=== PATIENT | male | born 1960 | race Caucasian/White ===

== ENCOUNTER 2021-08-04 07:59 | Outpatient (CLI) | payer BC ==
[2021-08-04 14:43] LABS: BASOPHILS % (AUTO) 0.2 %; EOSINOPHILS # (AUTO) 0.2 10^3/uL (0.0-0.7); EOSINOPHILS % (AUTO) 4.3 %; HCT - HEMATOCRIT 46.8 % (42.0-52.0); HGB - HEMOGLOBIN 15.3 g/dL (14.0-18.0); LYMPHOCYTES % (AUTO) 21.3 %; MEAN CORPUSCULAR HEMOGLOBIN 29.7 pg (27.0-31.0); MEAN CORPUSCULAR HGB CONC 32.7 g/dL (32.0-36.0); MEAN CORPUSCULAR VOLUME 90.9 fL (80.0-94.0); MEAN PLATELET VOLUME 9.7 fL (7.4-11.4); MONOCYTES # (AUTO) 0.4 10^3/uL (0.0-1.0); MONOCYTES % (AUTO) 9.3 %; NEUTROPHILS % (AUTO) 64.7 %; PLT - PLATELET COUNT 274 10^3/uL (130-450); RED BLOOD COUNT 5.15 10^6/uL (4.70-6.10); RED CELL DISTRIBUTION WIDTH 13.1 % (12.0-15.0); WHITE BLOOD COUNT 4.6 x10^3/uL (4.8-10.8)
[2021-08-04 15:16] LABS: ALBUMIN 4.5 g/dL (3.2-5.5); ALBUMIN/GLOBULIN RATIO 1.5 (1.0-2.2); ALKALINE PHOSPHATASE 101 IU/L (42-121); ALT ALANINE AMINOTRANSFERASE 31 IU/L (10-60); AST ASPARTATE AMINOTRANSFERASE 26 IU/L (10-42); BUN - BLOOD UREA NITROGEN 24 mg/dL (6-20); CALCIUM 9.5 mg/dL (8.5-10.3); CARBON DIOXIDE - CO2 25 mmol/L (21-32); CHLORIDE 104 mmol/L (101-111); CHOL/HDL RATIO 4.5 (<5.0); CHOLESTEROL 194 mg/dL; CREATININE 1.2 mg/dL (0.6-1.2); GFR - MDRD 61 (>89); GLUCOSE 103 mg/dL (70-100); HDL CHOLESTEROL 43 mg/dL; LDL CHOLESTEROL,CALCULATED 130 mg/dL; SODIUM 138 mmol/L (135-145); TOTAL PROTEIN 7.6 g/dL (6.7-8.2); TRIGLYCERIDES 107 mg/dL; VLDL CHOLESTEROL 21 mg/dL
== END 2021-08-04 08:00 | disposition home or self-care (01) ==
LOC: LAB.S 07:59
PROVIDERS: ATTEND Internal Medicine
DX: I10 Essential (primary) hypertension (principal); E78.5 Hyperlipidemia, unspecified; Z12.5 Encounter for screening for malignant neoplasm of prostate
CPT/HCPCS: 36415; 80053; 80061; 83721; 84153; 85025

== ENCOUNTER 2021-10-27 10:53 | Outpatient (CLI) | payer BC | END 2021-10-27 10:54 | disposition home or self-care (01) | LOC: LAB.S 10:53 | PROVIDERS: ATTEND Internal Medicine | DX: R97.20 Elevated prostate specific antigen [PSA] (principal) | CPT/HCPCS: 36415; 84153 ==

== ENCOUNTER 2022-10-25 08:17 | Outpatient (CLI) | payer BC ==
[2022-10-25 15:04] LABS: BASOPHILS % (AUTO) 0.2 %; EOSINOPHILS # (AUTO) 0.2 10^3/uL (0.0-0.7); EOSINOPHILS % (AUTO) 4.2 %; HCT - HEMATOCRIT 44.6 % (42.0-52.0); LYMPHOCYTES # (AUTO) 0.9 10^3/uL (1.5-3.5); LYMPHOCYTES % (AUTO) 17.7 %; MEAN CORPUSCULAR HEMOGLOBIN 29.6 pg (27.0-31.0); MEAN CORPUSCULAR HGB CONC 33.6 g/dL (32.0-36.0); MEAN CORPUSCULAR VOLUME 88.1 fL (80.0-94.0); MEAN PLATELET VOLUME 9.8 fL (7.4-11.4); MONOCYTES # (AUTO) 0.4 10^3/uL (0.0-1.0); MONOCYTES % (AUTO) 8.7 %; NEUTROPHILS # (AUTO) 3.4 10^3/uL (1.5-6.6); PLT - PLATELET COUNT 235 10^3/uL (130-450); RED BLOOD COUNT 5.06 10^6/uL (4.70-6.10)
[2022-10-25 15:24] LABS: ALBUMIN/GLOBULIN RATIO 1.3 (1.0-2.2); ALKALINE PHOSPHATASE 93 IU/L (42-121); ALT ALANINE AMINOTRANSFERASE 32 IU/L (10-60); AST ASPARTATE AMINOTRANSFERASE 26 IU/L (10-42); BILIRUBIN,TOTAL 0.7 mg/dL (0.2-1.0); BUN - BLOOD UREA NITROGEN 23 mg/dL (6-20); CALCIUM 8.9 mg/dL (8.5-10.3); CARBON DIOXIDE - CO2 25 mmol/L (21-32); CHLORIDE 104 mmol/L (101-111); CHOL/HDL RATIO 3.7 (<5.0); CHOLESTEROL 172 mg/dL; CREATININE 1.2 mg/dL (0.6-1.2); GFR - MDRD 61 (>89); GLUCOSE 105 mg/dL (70-100); HDL CHOLESTEROL 46 mg/dL; LDL CHOLESTEROL,CALCULATED 102 mg/dL; LDL/HDL RATIO 2.2 (<3.6); POTASSIUM 4.2 mmol/L (3.5-5.0); SODIUM 137 mmol/L (135-145); TOTAL PROTEIN 7.2 g/dL (6.7-8.2); TRIGLYCERIDES 119 mg/dL; VLDL CHOLESTEROL 24 mg/dL
[2022-10-25 15:36] LABS: THYROID STIMULATING HORMONE 3.32 uIU/mL (0.34-5.60)
== END 2022-10-25 08:18 | disposition home or self-care (01) ==
LOC: LAB.S 08:17
PROVIDERS: ATTEND Registered Nurse
DX: I10 Essential (primary) hypertension (principal); E78.5 Hyperlipidemia, unspecified; R97.20 Elevated prostate specific antigen [PSA]; Z12.5 Encounter for screening for malignant neoplasm of prostate
CPT/HCPCS: 36415; 80053; 80061; 83721; 84153; 84443; 85025

== ENCOUNTER 2023-12-05 08:47 | Outpatient (CLI) | payer BC ==
[2023-12-05 14:49] LABS: BASOPHILS % (AUTO) 0.3 %; EOSINOPHILS # (AUTO) 0.2 10^3/uL (0.0-0.7); HCT - HEMATOCRIT 42.1 % (42.0-52.0); HGB - HEMOGLOBIN 14.3 g/dL (14.0-18.0); LYMPHOCYTES # (AUTO) 0.8 10^3/uL (1.5-3.5); LYMPHOCYTES % (AUTO) 20.2 %; MEAN CORPUSCULAR HEMOGLOBIN 30.2 pg (27.0-31.0); MEAN CORPUSCULAR VOLUME 88.8 fL (80.0-94.0); MEAN PLATELET VOLUME 9.5 fL (7.4-11.4); MONOCYTES # (AUTO) 0.4 10^3/uL (0.0-1.0); MONOCYTES % (AUTO) 9.6 %; NEUTROPHILS # (AUTO) 2.6 10^3/uL (1.5-6.6); NEUTROPHILS % (AUTO) 65.6 %; PLT - PLATELET COUNT 207 10^3/uL (130-450); RED BLOOD COUNT 4.74 10^6/uL (4.70-6.10); RED CELL DISTRIBUTION WIDTH 12.8 % (12.0-15.0)
[2023-12-05 15:55] LABS: ALBUMIN 4.3 g/dL (3.2-5.5); ALBUMIN/GLOBULIN RATIO 2.2 (1.0-2.2); ALKALINE PHOSPHATASE 94 IU/L (42-121); ALT ALANINE AMINOTRANSFERASE 27 IU/L (10-60); AST ASPARTATE AMINOTRANSFERASE 23 IU/L (10-42); BILIRUBIN,TOTAL 0.6 mg/dL (0.2-1.0); BUN - BLOOD UREA NITROGEN 22 mg/dL (6-20); CARBON DIOXIDE - CO2 28 mmol/L (21-32); CHLORIDE 107 mmol/L (101-111); CHOL/HDL RATIO 3.7 (<5.0); CHOLESTEROL 177 mg/dL; CREATININE 1.1 mg/dL (0.6-1.3); GFR - MDRD 67 (>89); GLUCOSE 107 mg/dL (74-104); HDL CHOLESTEROL 48 mg/dL; LDL CHOLESTEROL,CALCULATED 107 mg/dL; LDL/HDL RATIO 2.2 (<3.6); POTASSIUM 4.3 mmol/L (3.5-4.5); SODIUM 138 mmol/L (135-145); TOTAL PROTEIN 6.3 g/dL (6.4-8.9); TRIGLYCERIDES 110 mg/dL (48-352); VLDL CHOLESTEROL 22 mg/dL
== END 2023-12-05 08:48 | disposition home or self-care (01) ==
LOC: LAB.S 08:47
PROVIDERS: ATTEND Registered Nurse
DX: R97.20 Elevated prostate specific antigen [PSA] (principal); I10 Essential (primary) hypertension; E78.5 Hyperlipidemia, unspecified
CPT/HCPCS: 36415; 80053; 80061; 83721; 84153; 85025

== ENCOUNTER 2024-05-12 06:59 | Day surgery (SDC) | payer BC ==
[2024-05-12] MEDS ORDERED: ceFAZolin 2 GM VIAL ONE (07:02)
[2024-05-12] MEDS: LACTATED RINGERS 1,000 ML IV ONE ×2 (07:29→08:49)
[2024-05-12] MEDS ORDERED: MORPHINE 2 MG/ML CARPUJECT IVP PRN (07:43)
[2024-05-12] MEDS ORDERED: ATROPINE ABBOJECT 1 MG/10 ML SYRINGE IVP PRN (07:43)
[2024-05-12] MEDS ORDERED: ONDANSETRON 4 MG/2 ML VIAL IVP PRN (07:43)
[2024-05-12] MEDS ORDERED: ePHEDrine 50 MG/ML VIAL IVP PRN (07:43)
[2024-05-12] MEDS ORDERED: fentaNYL 100 MCG/2 ML VIAL IVP PRN (07:43)
[2024-05-12] MEDS ORDERED: METOCLOPRAMIDE 10 MG/2 ML VIAL IVP PRN (07:43)
[2024-05-12] MEDS ORDERED: NALOXONE 0.4 MG/ML VIAL IVP PRN (07:43)
[2024-05-12] MEDS ORDERED: HYDROmorphone 0.5 MG/0.5 ML SYRINGE IVP PRN (07:43)
--- NOTE | 2024-05-12 07:43 | ANESTHESIA ---
Pre-Anesthesia VS, & Labs - Diagnosis BPH - Procedure UROLIFT Vital Signs: Temp Pulse Resp BP Pulse Ox O2 Flow Rate 36.5 C 68 16 152/102 H 97 0 05/12/24 07:22 05/12/24 07:22 05/12/24 07:22 05/12/24 07:22 05/12/24 07:22 05/12/24 07:22 Height: 6 ft 1 in Weight (kg): 110.2 kg Body Mass Index: 32.0 BMI Classification: Obese - NPO >8 hours Home Medications and Allergies Home Medications: Ambulatory Orders Alfuzosin HCl [Alfuzosin HCl ER] 10 mg PO DAILY 05/06/24 Dupilumab [Dupixent Pen] 300 mg SUBQ ONCE 05/06/24 Losartan/Hydrochlorothiazide [Hyzaar 100-25 Tablet] 1 each PO DAILY 05/06/24 Metoprolol Succinate [Toprol Xl] 25 mg PO DAILY 05/06/24 Rosuvastatin Calcium 40 mg PO DAILY 05/06/24 Alfuzosin HCl [Alfuzosin HCl ER] 10 mg PO DAILY 05/06/24 Dupilumab [Dupixent Pen] 300 mg SUBQ ONCE 05/06/24 Losartan/Hydrochlorothiazide [Hyzaar 100-25 Tablet] 1 each PO DAILY 05/06/24 Metoprolol Succinate [Toprol Xl] 25 mg PO DAILY 05/06/24 Rosuvastatin Calcium 40 mg PO DAILY 05/06/24 Allergies/Adverse Reactions: Allergies Allergy/AdvReac Type Severity Reaction Status Date / Time No Known Drug Allergies Allergy Verified 05/06/24 09:30 Anes History & Medical History - Anesthetic History Anesthesia Complications: reports: No previous complications - Medical History Cardiovascular: reports: Hypertension (NO METOPROLOL THIS AM, DENIES CP/SOB, HX [place]), High cholesterol Pulmonary: reports: None Gastrointestinal: reports: None Urinary: reports: Benign prostate hypertrophy Musculoskeletal: reports: Osteoarthritis Endocrine/Autoimmune: reports: None Skin: reports: Eczema Smoking Status: Never smoker Psychosocial: reports: No issues indicated Results - EKG Results EKG Comparison: Reviewed EKG Exam General: Alert, Oriented x3 Dental: WNL Mouth Openin Fingerbreadth Neck Mobility: Reduced Mallampati classification: III Thyromental Distance: 4-6 cm Respiratory: Lungs clear Cardiovascular: Regular rate Plan Anesthesia Type: MAC, Total IV Consent for Procedure(s) Verified and Reviewed: Yes Code Status: Attempt Resuscitation ASA classification: 2-Mild systemic disease Is this case an emergency?: No
[2024-05-12] MEDS ORDERED: LIDOCAINE 2% URO-JET 5 ML SYRINGE UR ONE (08:00)
[2024-05-12] MEDS ORDERED: LACTATED RINGERS 1,000 ML IV SCH (08:00)
[2024-05-12] MEDS ORDERED: PROPOFOL 200 MG/20 ML VIAL IVP ONE ×2 (08:05→08:08)
[2024-05-12] MEDS ORDERED: fentaNYL 100 MCG/2 ML VIAL ONE (08:05)
[2024-05-12] MEDS ORDERED: LIDOCAINE-PF 2% 10 ML AMP SUBQ ONE (08:05)
[2024-05-12] MEDS ORDERED: MIDAZOLAM 2 MG/2 ML VIAL ONE (08:05)
[2024-05-12] MEDS: LIDOCAINE JELLY 2% 6 ML JEL.PF.APP UR ONE (08:30)
[2024-05-12] MEDS ORDERED: HYDROcod/ACETAM 5/325 MG TABLET PO PRN (09:02)
--- NOTE | 2024-05-12 09:07 | Discharge Plan ---
Discharge Plan Problem Reviewed?: Yes Disposition: Home, Self Care Condition: Good Prescriptions: Docusate Sodium 100Mg Capsule [Colace 100Mg Capsule] 100 mg PO DAILY #14 cap oxyCODONE [Roxicodone] 5 mg PO Q4H PRN #10 tablet PRN Reason: Pain Diet: Regular Activity Restrictions: Additional Comments (as instructed) Shower Restrictions: No Driving Restrictions: No Instruction Topics: Malik Catheter Remove, Catheter Bag Urinary Empty Clean Additional Instructions or Follow Up instructions: You will be contacted for follow-up with Dr. Hayes in about 6 weeks No Smoking: If you smoke, Please STOP! Call for help. Follow-up with: Valery Mckeon ARNP [Primary Care Provider] -
--- NOTE | 2024-05-12 09:10 | OPERATIVE REPORT ---
Operative Report - General Procedure Date: 05/12/24 Planned Procedure: Cystoscopy, urolift Pre-Op Diagnosis: BPH with LUTS Procedure Performed: Cystoscopy, urolift with 6 implants Post Op Diagnosis: BPH with LUTS - Procedure Note Primary Surgeon: Freddy Anesthesia Provider: FLY Cortez Anesthesia Technique: MAC Pathology: none Estimated Blood Loss (mL): 2 Complications: catheter placed - Other Other Information/Narrative: After informed consent was obtained the patient was brought to the OR and laid in the supine position. The patient was anesthetized per anesthesia protocols and prepped draped in usual sterile fashion in the dorsolithotomy position. A formal timeout was performed reconfirming the patient and procedure. A UroLift cystoscope was advanced easily into urinary bladder. He was noted to have a high median ridge and obstructing lateral lobe prostate tissue. He had 1+ trabeculations. His bladder was slightly enlarged. UroLift implants were placed 3 on either side about half a centimeter distal to the bladder neck, just proximal to the [place], and about [facility] through. For total of 6 implants. We reinspected the channel and showed a good wide open channel. However there was some gentle oozing noted and so a Uro-Jet was placed and a 20 [place] two-way Malik catheter was placed to gravity drainage. This concluded the procedure the patient tolerated the procedure well. He will keep his catheter in place for 2 days and follow-up in 6 weeks
[2024-05-12 09:28] VITALS: BP 152/99; O2SAT 97
--- NOTE | 2024-05-12 11:55 | ANESTHESIA POST OP EVALUATION ---
Anesthesia Post Eval - Post Anesthesia Eval Vitals: Last Vital Signs Temp 36.4 C L 05/12/24 09:20 Pulse 63 05/12/24 09:20 Resp 14 05/12/24 09:20 BP 152/99 H 05/12/24 09:20 Pulse Ox 97 05/12/24 09:20 O2 Flow Rate 0 05/12/24 07:22 CV Function Including HR & BP: Stable Pain Control: Satisfactory Nausea & Vomiting: Negative Mental Status: Baseline Respiratory Status: Airway Patent Hydration Status: Satisfactory Anesthesia Complications: None
== END 2024-05-12 07:00 | disposition home or self-care (01) ==
LOC: SDS 06:59
PROVIDERS: ATTEND Urology
DX: N40.1 Benign prostatic hyperplasia with lower urinary tract symptoms (principal); E66.9 Obesity, unspecified; Z68.32 Body mass index [BMI] 32.0-32.9, adult; I10 Essential (primary) hypertension
CPT/HCPCS: 52441; 52442; J7120